=== PATIENT | male | born 1970 | race Caucasian/White ===

== ENCOUNTER 2019-01-24 12:08 | Inpatient (IN) | payer OTHER ==
--- NOTE | 2019-01-24 12:19 | Emergency Department Report ---
Blank Doc - Documentation Documentation: pt has been drinking ETOH in 3 weeks has not been eating for 6 days generalized abd pain 3 days chest pain 3 days +N/V/D no fever no urinary sx drinks 10 beers per day non smoker no drug use PMHx HTN +SI states he would take a knife to his stomach or take a gun to his head no HI no hallucinations
[2019-01-24] MEDS ORDERED: MAGNESIUM SULFATE 2GM/50ML 2 GM/50 ML BAG IV ONE (12:51)
[2019-01-24 13:02] LABS: Basophils % (Auto) 0.4 % (0.0-1.8); Hematocrit 46.5 % (35.5-45.6); Hemoglobin 16.1 gm/dl (11.8-15.2); Lymphocytes # (Auto) 1.4 K/mm3 (1.2-5.4); Lymphocytes % (Auto) 13.7 % (13.4-35.0); Mean Corpuscular HGB Conc 35 % (32-34); Mean Corpuscular Volume 87 fl (84-94); Monocytes # (Auto) 0.3 K/mm3 (0.0-0.8); Monocytes % (Auto) 2.6 % (0.0-7.3); Platelet Count 214 K/mm3 (140-440); Red Blood Count 5.35 M/mm3 (3.65-5.03); Red Cell Distribution Width 14.5 % (13.2-15.2)
--- NOTE | 2019-01-24 13:06 | Emergency Department Report ---
HPI - General Chief Complaint: Abdominal Pain Time Seen by Provider: 01/24/19 12:15 - HPI HPI: Room 9 The patient is a 48-year-old male presenting with a chief complaint of chest pain, abdominal pain and suicidal ideation. The patient states she has had constant left-sided chest pain for the past 3 days in addition to diffuse abdominal pain. Patient describes pain as sharp in nature. There is nausea/vomiting and shortness of breath associated with this chest pain. Patient began to complain of a headache while en route to the hospital. Family states the patient admitted to suicidal ideation for the past 3 days but denies any active attempt at harming himself. Family also states the patient has been on a heavy alcohol binge for the past couple of weeks Location: Chest, abdomen, head, mental state Duration: 3 days Quality: Sharp Severity: Moderate Modifying factors: [see above] Context: [see above] Mode of transportation: [not driving] ED Past Medical Hx - Past Medical History Hx Hypertension: Yes - Surgical History Hx Cholecystectomy: Yes - Family History Family history: no significant - Social History Smoking Status: Never Smoker Substance Use Type: None (denies illicit drug use), Alcohol ED Review of Systems ROS: Stated complaint: ABD/CHEST PAIN Other details as noted in HPI Constitutional: no symptoms reported Eyes: denies: eye pain ENT: denies: throat pain Respiratory: shortness of breath Cardiovascular: chest pain Endocrine: no symptoms reported Gastrointestinal: abdominal pain, nausea Genitourinary: denies: dysuria Musculoskeletal: denies: back pain Neurological: headache Physical Exam - Physical Exam Vital Signs: Vital Signs 01/24/19 12:17 Temperature 97.6 F Pulse Rate 116 H Respiratory 16 Rate Blood Pressure 142/91 [Left] O2 Sat by Pulse 97 Oximetry Physical Exam: GENERAL: The patient is well-developed well-nourished male lying on stretcher appearing to be in moderate emotional distress HEENT: Normocephalic. Atraumatic. Extraocular motions are intact. Patient has moist mucous membranes. NECK: Supple. Trachea midline CHEST/LUNGS: Clear to auscultation. There is no respiratory distress noted. HEART/CARDIOVASCULAR: Regular. There is no tachycardia. There is no gallop rub or murmur. ABDOMEN: Abdomen is soft, but diffusely tender to palpation. Patient has normal bowel sounds. There is no abdominal distention. SKIN: There is no rash. There is no edema. There is no diaphoresis. NEURO: The patient is awake, alert, and oriented. The patient is cooperative. The patient has no focal neurologic deficits. The patient has normal speech MUSCULOSKELETAL: There is no evidence of acute injury. ED Course Vital Signs 01/24/19 12:17 Temperature 97.6 F Pulse Rate 116 H Respiratory 16 Rate Blood Pressure 142/91 [Left] O2 Sat by Pulse 97 Oximetry ED Medical Decision Making - Lab Data Result diagrams: 01/24/19 12:43 01/24/19 12:43 - Radiology Data Radiology results: report reviewed (CT head, CT abdomen and pelvis, CT chest), image reviewed (CT head, CT abdomen and pelvis, CT chest) [facility] [address] [id number] Cat Scan Report Signed Patient: GILBERTO LAWRENCE MR#: [id number] : 1970 Acct:[id number] Age/Sex: 48 / M ADM Date: 01/24/19 Loc: ED Attending Dr: Ordering Physician: DELMA ESPAÑA MD Date of Service: 01/24/19 Procedure(s): CT head/brain wo con Accession Number(s): [id number] cc: DELMA ESPAÑA MD CT HEAD WITHOUT CONTRAST: HISTORY: Headache. TECHNIQUE: Sequential 2.5mm CT images. COMPARISON: none. FINDINGS: Cerebral Parenchyma: A 3.7 x 2.4 cm CSF density structure is identified in the right basal ganglia. The etiology of this is unclear. This may represent an arachnoid cyst. There is no evidence for mass effect or abnormal parenchymal signal surrounding this cystic lesion. Focal chronic infarct is thought less likely. Correlation with previous exam would be helpful. The remaining brain parenchyma is unremarkable. Cerebellum: Within normal limits. Brainstem: Within normal limits. Ventricles: Normal. Sella: Normal. Extra-axial spaces: Normal. Basal Cisterns: Normal. Intracranial Hemorrhage: None. Midline Shift: None. Calvarium: Normal. Sinuses: Normal. Mastoid Air Cells: Normal. Visualized Orbits: Normal. IMPRESSION: No acute intracranial process. Arachnoid cyst? See above. Transcribed By: TTR Dictated By: SHAWN TRIMBLE JR, MD Electronically Authenticated By: SHAWN TRIMBLE JR, MD Signed Date/Time: 01/24/191445 DD/ 43 TD/TT: 01/24/191445 [address] [address] Cat Scan Report Signed Patient: GILBERTO LAWRENCE MR#: [id number] : 1970 Acct:[id number] Age/Sex: 48 / M ADM Date: 01/24/19 Loc: ED Attending Dr: Ordering Physician: DELMA ESPAÑA MD Date of Service: 01/24/19 Procedure(s): CT angio chest Accession Number(s): [id number] cc: DELMA ESPAÑA MD CTA CHEST: HISTORY: Left chest pain. COMPARISON: none. TECHNIQUE: Helical CT in 1.25mm intervals following IV contrast. Pulmonary embolus protocol. Sagittal and coronal reformatted images. Rotational MIP images. FINDINGS: Contrast bolus is satisfactory. No pulmonary embolus is identified. Thyroid gland: Normal. Tracheobronchial tree: Normal. Esophagus: Normal. Heart: Normal. Pericardium: Normal. Mediastinum: Moderate hiatal hernia containing fat is noted. Lung Mariee: normal. Pleural Spaces: Normal. Musculoskeletal: Normal. IMPRESSION: No evidence for pulmonary embolus. No acute processes identified in the chest. Transcribed By: TTR Dictated By: SHAWN TRIMBLE JR, MD Electronically Authenticated By: SHAWN TRIMBLE JR, MD Signed Date/Time: 01/24/191448 DD/ 47 TD/TT: 01/24/[address] [address] Cat Scan Report Signed Patient: GILBERTO LAWRENCE MR#: [id number] : 1970 Acct:[id number] Age/Sex: 48 / M ADM Date: 01/24/19 Loc: ED Attending Dr: Ordering Physician: DELMA ESPAÑA MD Date of Service: 01/24/19 Procedure(s): CT abdomen pelvis w con Accession Number(s): [id number] cc: DELMA ESPAÑA MD CT ABDOMEN PELVIS WITH CONTRAST: HISTORY: Diffuse abdominal pain, nausea, vomiting. COMPARISON: none. TECHNIQUE: Helical CT in 1.25mm intervals following IV contrast. Sagittal and coronal reconstructions. FINDINGS: Liver: There is mild diffuse fatty infiltration throughout the liver. No mass or enlargement. Biliary system: Cholecystectomy. There is mild pneumobilia near the liver hilum. Pancreas: Normal. Spleen: Normal. Kidneys/ureters/bladder: Normal. Adrenal glands: Normal. Aorta: Normal. Intestines: Unremarkable. Surgical changes in the mid small bowel are noted. Appendix: Normal. Pelvic viscera: Normal. Ascites: None. Adenopathy: None. Musculoskeletal: Normal. IMPRESSION: No acute process is identified. Hepatic steatosis. Cholecystectomy. Transcribed By: TTR Dictated By: SHAWN TRIMBLE JR, MD Electronically Authenticated By: SHAWN ESTRADA JR, MD Signed Date/Time: 01/24/191451 DD/ 48 TD/TT: 01/24/191451 - Differential Diagnosis ACS, pancreatitis, GERD, suicidal ideation Critical care attestation.: If time is entered above; I have spent that time in minutes in the direct care of this critically ill patient, excluding procedure time. ED Disposition Clinical Impression: Suicidal ideation, Hyponatremia, Elevated lipase, Chest pain, Alcohol intoxication Disposition: OP ADMIT IP TO THIS HOSP Is pt being admited?: Yes Does the pt Need Aspirin: Yes Condition: Fair Instructions: Chest Pain (ED) Referrals: IGGY ALVAREZ MD [Primary Care Provider] - 3-5 Days Time of Disposition: 15:35 (hospitalist paged (Dr Sanders))
[2019-01-24 13:15] LABS: INR 0.89 (0.87-1.13)
[2019-01-24 13:16] LABS: Partial Thromboplastin Time 26.5 Sec. (24.2-36.6)
--- NOTE | 2019-01-24 13:20 | XRay Report ---
ROUTINE CHEST, TWO VIEWS: HISTORY: chest pain. There is poor inspiratory effort. The trachea, heart, mediastinal contour, lung caraballo and bony thorax are unremarkable. IMPRESSION: Unremarkable expiratory chest x-ray.
[2019-01-24 13:30] LABS: BUN/Creatinine Ratio 11; Blood Urea Nitrogen 9 mg/dL (9-20); Calcium 8.2 mg/dL (8.4-10.2)
[2019-01-24 13:31] LABS: Alanine Aminotransferase 62 units/L (7-56); Albumin 3.8 g/dL (3.9-5); Hemolysis Index 9
[2019-01-24] MEDS ORDERED: VITAMIN B-1 100 MG, FOLVITE 1 MG, INFUVITE 10 ML in NACL 0.9% 1000 ML 1,000 ML IV ONE (13:50)
[2019-01-24] MEDS ORDERED: NACL 0.9% 1000 ML 1,000 ML IV ONE (14:44)
--- NOTE | 2019-01-24 14:51 | Cat Scan Report ---
CT HEAD WITHOUT CONTRAST: HISTORY: Headache. TECHNIQUE: Sequential 2.5mm CT images. COMPARISON: none. FINDINGS: Cerebral Parenchyma: A 3.7 x 2.4 cm CSF density structure is identified in the right basal ganglia. The etiology of this is unclear. This may represent an arachnoid cyst. There is no evidence for mass effect or abnormal parenchymal signal surrounding this cystic lesion. Focal chronic infarct is thought less likely. Correlation with previous exam would be helpful. The remaining brain parenchyma is unremarkable. Cerebellum: Within normal limits. Brainstem: Within normal limits. Ventricles: Normal. Sella: Normal. Extra-axial spaces: Normal. Basal Cisterns: Normal. Intracranial Hemorrhage: None. Midline Shift: None. Calvarium: Normal. Sinuses: Normal. Mastoid Air Cells: Normal. Visualized Orbits: Normal. IMPRESSION: No acute intracranial process. Arachnoid cyst? See above.
--- NOTE | 2019-01-24 14:54 | Cat Scan Report ---
CTA CHEST: HISTORY: Left chest pain. COMPARISON: none. TECHNIQUE: Helical CT in 1.25mm intervals following IV contrast. Pulmonary embolus protocol. Sagittal and coronal reformatted images. Rotational MIP images. FINDINGS: Contrast bolus is satisfactory. No pulmonary embolus is identified. Thyroid gland: Normal. Tracheobronchial tree: Normal. Esophagus: Normal. Heart: Normal. Pericardium: Normal. Mediastinum: Moderate hiatal hernia containing fat is noted. Lung Mariee: normal. Pleural Spaces: Normal. Musculoskeletal: Normal. IMPRESSION: No evidence for pulmonary embolus. No acute processes identified in the chest.
--- NOTE | 2019-01-24 14:57 | Cat Scan Report ---
CT ABDOMEN PELVIS WITH CONTRAST: HISTORY: Diffuse abdominal pain, nausea, vomiting. COMPARISON: none. TECHNIQUE: Helical CT in 1.25mm intervals following IV contrast. Sagittal and coronal reconstructions. FINDINGS: Liver: There is mild diffuse fatty infiltration throughout the liver. No mass or enlargement. Biliary system: Cholecystectomy. There is mild pneumobilia near the liver hilum. Pancreas: Normal. Spleen: Normal. Kidneys/ureters/bladder: Normal. Adrenal glands: Normal. Aorta: Normal. Intestines: Unremarkable. Surgical changes in the mid small bowel are noted. Appendix: Normal. Pelvic viscera: Normal. Ascites: None. Adenopathy: None. Musculoskeletal: Normal. IMPRESSION: No acute process is identified. Hepatic steatosis. Cholecystectomy.
[2019-01-24] MEDS ORDERED: ASPIRIN PO ONE (15:36)
[2019-01-24] MEDS ORDERED: SODIUM CHLORIDE FLUSH SYRINGE 10 ML IV PRN (15:51)
[2019-01-24] MEDS ORDERED: TYLENOL PO PRN (15:51)
[2019-01-24 15:54] LABS: Bacteria,Urine 1+ /HPF (Negative); Bilirubin,Urine NEG (Negative); Blood,Urine SM (Negative); Color,Urine Straw (Yellow); Hyaline Casts,Urine 2 /LPF; Mucus,Urine FEW /HPF; Urobilinogen,Urine < 2.0 mg/dL (<2.0)
[2019-01-24 15:58] LABS: Amphetamine Screen,Urine PRESUMPTIVE NEGATIVE; Benzodiazepines Screen,Urine PRESUMPTIVE NEGATIVE; Cannabinoid Screen,Urine PRESUMPTIVE NEGATIVE; Cocaine Screen,Urine PRESUMPTIVE NEGATIVE; Methadone Screen,Urine PRESUMPTIVE NEGATIVE; Opiate Screen,Urine PRESUMPTIVE NEGATIVE
[2019-01-24] MEDS: SODIUM CHLORIDE FLUSH SYRINGE 10 ML IV SCH ×2 (16:10→21:32)
[2019-01-24] MEDS: DILAUDID IV PRN (16:28)
[2019-01-24] MEDS: PEPCID IV SCH ×2 (16:29→22:39)
[2019-01-24] MEDS: ZOFRAN IV PRN (16:29)
[2019-01-24] MEDS: D5NS 1,000 ML IV SCH (21:26)
[2019-01-24] MEDS: PERCOCET 5/325 PO PRN (21:27)
--- NOTE | 2019-01-24 23:53 | Event Note ---
Date: 01/24/19 See H/p in reports Hyponatremia Chestr pain ETOH Dependence
[2019-01-25] MEDS ORDERED: LIBRIUM PO PRN ×2
[2019-01-25] MEDS ORDERED: ATIVAN IV PRN
--- NOTE | 2019-01-25 00:20 | History and Physical Report ---
CHIEF COMPLAINT: 1. Abdominal pain. 2. Suicidal ideation. 3. ETOH intoxication. HISTORY OF PRESENT ILLNESS: A 48-year-old Faroese speaking male comes in for abdominal discomfort and suicidal ideation. The patient also incidentally has some chest pain. The patient has lot of reflux symptoms from the past. The patient is a heavy alcohol use, uses 12-20 beers a day. He has been having nausea and severe reflux symptoms. The patient also complains of suicidal ideation for the last 3 days. No suicidal plan present. The patient has a history of hypertension. PAST MEDICAL HISTORY: Significant for hypertension. PAST SURGICAL HISTORY: Cholecystectomy. SOCIAL HISTORY: Does not smoke. Alcohol on a regular basis about 12-20 beers a day. FAMILY HISTORY: Hypertension. REVIEW OF SYSTEMS: Significant for epigastric pain and chest pain, which is secondary to his reflux. Otherwise, review of systems is negative. PHYSICAL EXAMINATION: GENERAL: Middle-aged male, cooperative during examination. VITAL SIGNS: Temperature 98.1, pulse is 70, respirations are 12, sats are 96%, blood pressure 137/89. HEENT: Unremarkable. Pupils equal and reactive. NECK: Supple, no lymphadenopathy, no thyromegaly. LUNGS: Clear to auscultation and percussion. Good air entry. CARDIOVASCULAR: S1, S2 heard. No gallop, no murmur, no rub. Apical impulse in left fifth intercostal space and midclavicular line. ABDOMEN: Slight epigastric tenderness present. Otherwise, bowel sounds are present, benign. EXTREMITIES: Good pedal pulses. No pedal edema. CENTRAL NERVOUS SYSTEM: Alert and oriented x 4, nonfocal exam. SKIN: Normal. LABORATORY DATA: Significant for white count of 10,000, H and H is 16.1 and 46.5, platelet count is 214,000. Sodium is 124, potassium is 3.7, BUN and creatinine are 9 and 0.8, AST is 74, ALT is 62, alkaline phosphatase is 141. Albumin is 3.8, total protein is 7.8. Drug screen is negative. Alcohol level is 0.32. Electrocardiogram, sinus tachycardia, heart rate of 108 per minute, no acute ST-T wave changes. CT of the abdomen with pelvis present. No acute process identified. Hepatic steatosis and cholecystectomy, status post. Chest CTA, no evidence of pulmonary embolism. No acute process. Head CT shows no acute intracranial process. Labs are significant for white count of 10,600, H and H is 16.1 and 46.5. Sodium is 124. ASSESSMENT AND PLAN: 1. Hyponatremia. The patient started on IV normal saline for now. 2. Transaminitis, probably secondary to alcohol. Check hepatitis profile. 3. Chest pain, possible acute gastritis. We will get serial troponins. No Lexiscan was ordered. 4. ETOH dependence. CIWA protocol initiated. 5. Deep venous thrombosis prophylaxis, Lovenox 40 mg subcutaneous started. JOB# [id number] VSM/NTS MTDD
[2019-01-25] MEDS: PROTONIX IV SCH ×2 (01:50→09:44)
[2019-01-25 02:32] LABS: Basophils % (Auto) 0.2 % (0.0-1.8); Eosinophils % (Auto) 0.1 % (0.0-4.3); Hematocrit 39.1 % (35.5-45.6); Hemoglobin 13.6 gm/dl (11.8-15.2); Lymphocytes # (Auto) 1.3 K/mm3 (1.2-5.4); Lymphocytes % (Auto) 15.2 % (13.4-35.0); Mean Corpuscular HGB Conc 35 % (32-34); Mean Corpuscular Volume 87 fl (84-94); Monocytes # (Auto) 0.5 K/mm3 (0.0-0.8); Monocytes % (Auto) 5.2 % (0.0-7.3); Platelet Count 154 K/mm3 (140-440); Red Blood Count 4.49 M/mm3 (3.65-5.03); Red Cell Distribution Width 14.6 % (13.2-15.2)
[2019-01-25 02:58] LABS: Alanine Aminotransferase 46 units/L (7-56); Albumin 3.2 g/dL (3.9-5); BUN/Creatinine Ratio 9; Blood Urea Nitrogen 7 mg/dL (9-20); Calcium 7.7 mg/dL (8.4-10.2); Hemolysis Index 2
--- NOTE | 2019-01-25 03:14 | History and Physical Report ---
CHIEF COMPLAINT: Abdominal pain. HISTORY OF PRESENT ILLNESS: The patient is a 48-year-old male, comes in for epigastric pain and suicidal ideation. Also chest pain secondary to reflux. The patient is a heavy binge drinker. Drinks about 12-20 beers a day. The patient has been having epigastric pain for the last 3 days. Also, radiation to the chest. No shortness of breath. No exacerbating or precipitating factors. Epigastric and chest pain is over 5 on a scale of 1-10. PAST MEDICAL HISTORY: Significant for hypertension. PAST SURGICAL HISTORY: Cholecystectomy. FAMILY HISTORY: No significant family history. SOCIAL HISTORY: Does not smoke. Alcohol on a regular basis, 12-20 bottles of beer. REVIEW OF SYSTEMS: Significant for epigastric and chest pain. PHYSICAL EXAMINATION: GENERAL: Young male, cooperative during examination. VITAL SIGNS: Blood pressure is 124/89, temperature is 98.1, pulse is 70, and respirations 12-18. HEENT: Unremarkable. Pupils equal and reactive. NECK: Supple. No lymphadenopathy. No thyromegaly. LUNGS: Clear to auscultation and percussion. Good air entry. CARDIOVASCULAR: S1, S2 heard. No gallop. No murmur. No rub. Apical impulse in left fifth intercostal space and midclavicular line. ABDOMEN: Soft. Slight tenderness in the epigastric region. EXTREMITIES: Good pedal pulses. No pedal edema. CENTRAL NERVOUS SYSTEM: Alert and oriented x 4, nonfocal exam. SKIN: Normal. LABORATORY DATA: Urine is normal. Increased hepatic enzymes. AST 74 and ALT 62. Sodium is 124. DIAGNOSTIC DATA: EKG, normal sinus rhythm, sinus tachycardia. CT chest and CT angiogram, chest x-ray, and head CT are normal. ASSESSMENT AND PLAN: 1. Hyponatremia. IV normal saline for now. 2. Chest pain secondary to acute gastritis. Continue Protonix IV b.i.d. 3. Ethyl alcohol dependency. [facility] protocol initiated. 4. Suicidal ideation. Mental health consult requested. 5. Deep venous thrombosis prophylaxis, Lovenox 40 mg subcutaneous daily. JOB# [id number] VSM/NTS
[2019-01-25] MEDS: DILAUDID IV PRN ×2 (04:47→21:45)
[2019-01-25] MEDS: ATIVAN IV PRN (05:01)
[2019-01-25] MEDS: D5NS 1,000 ML IV SCH ×2 (05:08→15:00)
[2019-01-25 09:36] LABS: Hepatitis B Surface Antigen Non-Reactive (Negative); Hepatitis C Virus Antibody Non-Reactive (NonReactive)
[2019-01-25] MEDS: SODIUM CHLORIDE FLUSH SYRINGE 10 ML IV SCH ×2 (09:44→21:45)
[2019-01-25] MEDS: LOVENOX SUB-Q SCH (09:44)
--- NOTE | 2019-01-25 09:49 | Event Note ---
Date: 01/25/19 patient was seen and evaluated this morning, patient is medically stable for discharge. Discharge is per psych.
--- NOTE | 2019-01-25 11:19 | Progress Note ---
Assessment and Plan Assessment and plan: 48-year-old male was presented to the ED for the complaints of suicidal ideation. Patient is complaining chest pain and admitted to the floor for the management of chest pain. Patient drinks 12-20 beers a day. Suicidal ideation - Management per mental health Alcohol withdrawal - Patient patient was calm and cooperative this morning - No signs of withdrawal - Continue with CIWA protocol Chest pain likely due to GERD -Patient is on PPI -Symptoms resolved Hyponatremia - Resolved with IV fluid DVT prophylaxis Disposition; patient is medically stable and discharge is per psych recommendations. History Interval history: Patient was seen and about at this morning, Patient was alert and oriented. Hospitalist Physical - Physical exam Narrative exam: Not in cardiopulmonary distress. The patient is obese. Vital signs as documented. Head exam is unremarkable. No scleral icterus . Neck is without jugular venous distension, thyromegaly, or carotid bruits. Lungs are clear to auscultation. Cardiac exam reveals regular rate and Rhythm. Abdominal exam reveals normal bowel sounds. Extremities are nonedematous and both femoral and pedal pulses are normal. INCLUSION [employer]ER: Alert and oriented 3. No focal weakness. - Constitutional Vitals: Temp Pulse Resp BP Pulse Ox 98.6 F 104 H 24 161/92 90 01/25/19 04:58 01/25/19 04:58 01/25/19 04:58 01/25/19 04:58 01/25/19 04:58 Results - Labs CBC & Chem 7: 01/25/19 02:10 01/25/19 02:10 Labs: Laboratory Last Values WBC 8.9 K/mm3 (4.5-11.0) 01/25/19 02:10 RBC 4.49 M/mm3 (3.65-5.03) 01/25/19 02:10 Hgb 13.6 gm/dl (11.8-15.2) 01/25/19 02:10 Hct 39.1 % (35.5-45.6) D 01/25/19 02:10 MCV 87 fl (84-94) 01/25/19 02:10 MCH 30 pg (28-32) 01/25/19 02:10 MCHC 35 % (32-34) H 01/25/19 02:10 RDW 14.6 % (13.2-15.2) 01/25/19 02:10 Plt Count 154 K/mm3 (140-440) 01/25/19 02:10 Lymph % (Auto) 15.2 % (13.4-35.0) 01/25/19 02:10 Lee % (Auto) 5.2 % (0.0-7.3) 01/25/19 02:10 Eos % (Auto) 0.1 % (0.0-4.3) 01/25/19 02:10 Baso % (Auto) 0.2 % (0.0-1.8) 01/25/19 02:10 Lymph # 1.3 K/mm3 (1.2-5.4) 01/25/19 02:10 Lee # 0.5 K/mm3 (0.0-0.8) 01/25/19 02:10 Eos # 0.0 K/mm3 (0.0-0.4) 01/25/19 02:10 Baso # 0.0 K/mm3 (0.0-0.1) 01/25/19 02:10 Seg Neutrophils % 79.3 % (40.0-70.0) H 01/25/19 02:10 Seg Neutrophils # 7.0 K/mm3 (1.8-7.7) 01/25/19 02:10 PT 12.6 Sec. (12.2-14.9) 01/24/19 12:43 INR 0.89 (0.87-1.13) 01/24/19 12:43 APTT 26.5 Sec. (24.2-36.6) 01/24/19 12:43 Sodium 137 mmol/L (137-145) D 01/25/19 02:10 Potassium 3.6 mmol/L (3.6-5.0) 01/25/19 02:10 Chloride 98.2 mmol/L (98-107) 01/25/19 02:10 Carbon Dioxide 19 mmol/L (22-30) L 01/25/19 02:10 23 mmol/L 01/25/19 02:10 BUN 7 mg/dL (9-20) L 01/25/19 02:10 0.8 mg/dL (0.8-1.5) 01/25/19 02:10 Estimated GFR > 60 ml/min 01/25/19 02:10 9 % 01/25/19 02:10 Glucose 88 mg/dL (75-100) 01/25/19 02:10 5.9 % (4-6) 01/24/19 15:59 Calcium 7.7 mg/dL (8.4-10.2) L 01/25/19 02:10 Phosphorus 2.20 mg/dL (2.5-4.5) L 01/25/19 00:12 Magnesium 2.00 mg/dL (1.7-2.3) 01/25/19 00:12 0.50 mg/dL (0.1-1.2) 01/25/19 02:10 AST 51 units/L (5-40) H 01/25/19 02:10 ALT 46 units/L (7-56) 01/25/19 02:10 116 units/L (35-129) 01/25/19 02:10 35.0 umol/L (25-60) 01/25/19 00:12 < 0.010 ng/mL (0.00-0.029) 01/24/19 12:43 NT-Pro-B Natriuret Pep 14.69 pg/mL (0-450) 01/24/19 12:43 6.4 g/dL (6.3-8.2) 01/25/19 02:10 3.2 g/dL (3.9-5) L 01/25/19 02:10 1.0 % 01/25/19 02:10 Amylase 84 units/L (27-131) 01/25/19 00:12 82 units/L (13-60) H 01/24/19 12:43 Straw (Yellow) 01/24/19 15:30 Clear (Clear) 01/24/19 15:30 6.0 (5.0-7.0) 01/24/19 15:30 Ur Specific [place] 1.014 (1.003-1.030) 01/24/19 15:30 30 mg/dl mg/dL (Negative) 01/24/19 15:30 Neg mg/dL (Negative) 01/24/19 15:30 Neg mg/dL (Negative) 01/24/19 15:30 Sm (Negative) 01/24/19 15:30 Neg (Negative) 01/24/19 15:30 Neg (Negative) 01/24/19 15:30 < 2.0 mg/dL (<2.0) 01/24/19 15:30 Ur Leukocyte Esterase Neg (Negative) 01/24/19 15:30 0.0 /HPF (0.0-6.0) 01/24/19 15:30 4.0 /HPF (0.0-6.0) 01/24/19 15:30 U Epithel Cells (Auto) < 1.0 /HPF (0-13.0) 01/24/19 15:30 1+ /HPF (Negative) 01/24/19 15:30 Hyaline Casts 2 /LPF 01/24/19 15:30 Few /HPF 01/24/19 15:30 Salicylates < 0.3 mg/dL (2.8-20.0) L 01/24/19 12:43 Presumptive negative 01/24/19 15:30 Presumptive negative 01/24/19 15:30 Acetaminophen < 5.0 ug/mL (10.0-30.0) L 01/24/19 12:43 Ur Barbiturates Screen Presumptive negative 01/24/19 15:30 Ur Phencyclidine Scrn Presumptive negative 01/24/19 15:30 Ur Amphetamines Screen Presumptive negative 01/24/19 15:30 U Benzodiazepines Scrn Presumptive negative 01/24/19 15:30 Presumptive negative 01/24/19 15:30 U Marijuana (THC) Screen Presumptive negative 01/24/19 15:30 Disclamer 01/24/19 15:30 Plasma/Serum Alcohol 0.32 % (0-0.07) H 01/24/19 12:43 Hepatitis A IgM Ab Non-reactive (NonReactive) 01/25/19 07:29 Hep Bs Antigen Non-reactive (Negative) 01/25/19 07:29 Hep B Core IgM Ab Non-reactive (NonReactive) 01/25/19 07:29 Non-reactive (NonReactive) 01/25/19 07:29 Active Medications - Current Medications Current Medications: Generic Name Dose Route Start Last Admin Trade Name Freq PRN Reason Stop Dose Admin Acetaminophen 650 mg 01/24/19 15:51 Tylenol PO Q4H PRN Pain MILD(1-3)/Fever >100.5/ROLDAN Chlordiazepoxide HCl 50 mg 01/25/19 00:00 Librium PO Q1H PRN CIWA-Ar 8-15 Chlordiazepoxide HCl 100 mg 01/25/19 00:00 Librium PO Q1H PRN [facility] 16-25 Enoxaparin Sodium 40 mg 01/25/19 10:00 01/25/19 09:44 Lovenox SUB-Q 40 mg QDAY ADRIANA Administration Hydromorphone HCl 0.25 mg 01/24/19 15:51 01/25/19 04:47 Dilaudid IV 0.25 mg Q3H PRN Administration Pain, Moderate (4-6) Dextrose/Sodium Chloride 1,000 mls @ 100 mls/hr 01/24/19 17:00 01/25/19 05:08 D5ns IV 100 mls/hr DIRECT ADRIANA Administration Lorazepam 2 mg 01/25/19 00:00 01/25/19 05:01 Ativan IV 2 mg Q1H PRN [facility] Lorazepam 4 mg 01/25/19 00:00 Ativan IV Q1H PRN [facility] 16-25 Ondansetron HCl 4 mg 01/24/19 15:51 01/24/19 16:29 Zofran IV 4 mg Q8H PRN Administration Nausea And Vomiting Oxycodone/Acetaminophen 1 tab 01/24/19 15:51 01/24/19 21:27 Percocet 5/325 PO 1 tab Q6H PRN Administration Pain, Moderate (4-6) Pantoprazole Sodium 40 mg 01/25/19 01:00 01/25/19 09:44 Protonix IV 40 mg BID ADRIANA Administration Sodium Chloride 10 ml 01/24/19 16:00 01/25/19 09:44 Sodium Chloride Flush Syringe 10 Ml IV 10 ml BID ADRIANA Administration Sodium Chloride 10 ml 01/24/19 15:51 Sodium Chloride Flush Syringe 10 Ml IV PRN PRN LINE FLUSH
[2019-01-25] MEDS: PROTONIX PO SCH (13:07)
[2019-01-25] MEDS: PERCOCET 5/325 PO PRN (14:59)
--- NOTE | 2019-01-25 18:22 | Consultation ---
History of Present Illness - Reason for Consult Consult date: 01/25/19 Reason for consult: psychiatric evaluation - Chief Complaint Chief complaint: "I was intoxicated." 48 year old male seen for psychiatric evaluation on the medical floor. His chief complaint was chest pain, abdominal pain and suicidal ideation. He denies thoughts of suicide and says he was very intoxicated and does not remember what he said. He was sober for 5 years and in the last 2 weeks, he started drinking again. ETOH level 0.32 on arrival to the ER. He denies illicit substance use. He has been thinking about what he needs to do to get his life back on track. He attends AA. He states his left him, he lost his job when he asked for a raise, and his mother got sick, all within the past 2 weeks. He denies homicidal ideation. He denies psychotic symptoms. He denies a history consistent with epifanio. He complains of abdominal pain. Psychiatric history: inpatient psychiatric stay approx 15-20 years ago for detox No previous meds for depression. He describes a history of depression. longest perioid of sobriety was 10 years. Latest period of sobriety was 5 years until 2 weeks ago Medications and Allergies Allergies Allergy/AdvReac Type Severity Reaction Status Date / Time No Known Allergies Allergy Unverified 01/24/19 12:09 Active Meds: Active Medications Acetaminophen (Tylenol) 650 mg PO Q4H PRN PRN Reason: Pain MILD(1-3)/Fever >100.5/ROLDAN Chlordiazepoxide HCl (Librium) 50 mg PO Q1H PRN PRN Reason: CIWA-Ar 8-15 Chlordiazepoxide HCl (Librium) 100 mg PO Q1H PRN PRN Reason: CIWA-Ar 16-25 Enoxaparin Sodium (Lovenox) 40 mg SUB-Q QDAY ADRIANA Last Admin: 01/25/19 09:44 Dose: 40 mg Documented by: Hydromorphone HCl (Dilaudid) 0.25 mg IV Q3H PRN PRN Reason: Pain, Moderate (4-6) Last Admin: 01/25/19 04:47 Dose: 0.25 mg Documented by: Dextrose/Sodium Chloride (D5ns) 1,000 mls @ 100 mls/hr IV DIRECT ADRIANA Last Admin: 01/25/19 15:00 Dose: 100 mls/hr Documented by: Lorazepam (Ativan) 2 mg IV Q1H PRN PRN Reason: HUGO-Ar 8-15 Last Admin: 01/25/19 05:01 Dose: 2 mg Documented by: Lorazepam (Ativan) 4 mg IV Q1H PRN PRN Reason: HUGO-Eris 16-25 Ondansetron HCl (Zofran) 4 mg IV Q8H PRN PRN Reason: Nausea And Vomiting Last Admin: 01/24/19 16:29 Dose: 4 mg Documented by: Oxycodone/Acetaminophen (Percocet 5/325) 1 tab PO Q6H PRN PRN Reason: Pain, Moderate (4-6) Last Admin: 01/25/19 14:59 Dose: 1 tab Documented by: Pantoprazole Sodium (Protonix) 40 mg PO QDAY [facility] Last Admin: 01/25/19 13:07 Dose: 40 mg Documented by: Sodium Chloride (Sodium Chloride Flush Syringe 10 Ml) 10 ml IV BID [facility] Last Admin: 01/25/19 09:44 Dose: 10 ml Documented by: Sodium Chloride (Sodium Chloride Flush Syringe 10 Ml) 10 ml IV PRN PRN PRN Reason: LINE FLUSH Past psychiatric history - past Psychiatric treatment and history Psych: Addictions, Depression - Social History Social history: lives with family ( from ), alcohol abuse Mental Status Exam - Vital signs Last Vital Signs Temp 98.1 F 01/25/19 17:16 Pulse 92 H 01/25/19 17:16 Resp 18 01/25/19 17:16 BP 155/97 01/25/19 17:16 Pulse Ox 93 01/25/19 17:16 - Exam Orientation: time, place, person Affect: depressed Mood: congruent with affect Thought content: other (denies suicidal or homicidal ideation) Thought Process: Intact Perceptions: none Speech: normal rate and pattern Concentration: focused Motor activity: normal Level of consciousness: alert Memory: Intact Sleep Symptoms: None (affected by pain) Appetite: decreased (minimally ate for 6 days) Interaction: cooperative Mini mental status exam(if necessary): 24-30 Results Result Diagrams: 01/25/19 02:10 01/25/19 02:10 Abnormal lab results 01/25/19 01/25/19 01/25/19 Range/Units 00:12 02:10 02:10 MCHC 35 H (32-34) % Seg Neutrophils % 79.3 H (40.0-70.0) % Carbon Dioxide 19 L (22-30) mmol/L BUN 7 L (9-20) mg/dL Calcium 7.7 L (8.4-10.2) mg/dL Phosphorus 2.20 L (2.5-4.5) mg/dL AST 51 H (5-40) units/L Albumin 3.2 L (3.9-5) g/dL All other labs normal. Assessment and Plan Assessment and plan: Impression: alcohol use disorder major depressive disorder, recurrent He denies suicidal ideation. He is on 1013. recommendations: plan for prozac 20mg daily for depression. Potential side effects discussed and he is agreeable. CIWA per medical team continue 1013 dispo: reevaluate in 24 hours to determine if he meets [address] Victoria
[2019-01-26] MEDS: D5NS 1,000 ML IV SCH ×2 (00:55→20:59)
[2019-01-26 06:05] LABS: BUN/Creatinine Ratio 9; Blood Urea Nitrogen 7 mg/dL (9-20); Calcium 8.2 mg/dL (8.4-10.2); Hemolysis Index 9
[2019-01-26] MEDS ORDERED: REGLAN ONE (09:10)
[2019-01-26] MEDS: ZOFRAN IV PRN (09:17)
[2019-01-26] MEDS: PROTONIX PO SCH (09:18)
[2019-01-26] MEDS: LOVENOX SUB-Q SCH (09:18)
[2019-01-26] MEDS ORDERED: MAGNESIUM SULFATE 2GM/50ML 2 GM/50 ML BAG IV ONE (09:37)
[2019-01-26] MEDS ORDERED: APRESOLINE IV PRN (09:37)
[2019-01-26] MEDS ORDERED: PHENERGAN PR PRN (09:38)
[2019-01-26] MEDS ORDERED: ZOFRAN IV PRN (09:38)
[2019-01-26] MEDS ORDERED: KCL 40 MEQ in NACL 0.45% 500 ML IV SCH (09:45)
[2019-01-26] MEDS: PERCOCET 5/325 PO PRN (10:41)
[2019-01-26] MEDS: SODIUM CHLORIDE FLUSH SYRINGE 10 ML IV SCH ×2 (10:45→21:01)
--- NOTE | 2019-01-26 12:31 | Progress Note ---
Assessment and Plan Assessment and plan: 48-year-old male was presented to the ED for the complaints of suicidal ideation. Patient is complaining chest pain and admitted to the floor for the management of chest pain. Patient drinks 12-20 beers a day. Suicidal ideation - Management per mental health, cont 1013 Alcohol intoxication and withdrawal - Patient patient was calm and cooperative this morning - No signs of withdrawal - Continue with CIWA protocol Chest pain likely due to GERD? tachycardia cont PPI obtain 12 lead EKG, obtain troponin and cardiology consult Hyponatremia - Resolved with IV fluid N/V zofran prn, ivf, ct/ap shows fatty liver, will obtain RUQ sono, if symptoms do not resolve by tomorrow, will consult GI DVT prophylaxis; lovenox History Interval history: Review of systems Constitutional: No fevers, no malaise, no joint pains CVS: No chest pain, no orthopnea, no pedal edema GI: Abdominal pain is improved, no diarrhea, no vomiting, no constipation Respiratory: No shortness of breath, no wheezing, no coughing Hospitalist Physical - Physical exam Narrative exam: General.: Appears well, no distress, nontoxic HEENT: Moist mucous membranes, extraocular muscles intact, no lymphadenopathy Neck: supple Cardiac: S1-S2 heard Lungs: clear to auscultation bilaterally Abdomen: soft , nontender, nondistended, bowel sounds positive Extremities: no edema clubbing or cyanosis Skin: no rash or lesions Neurologic: no gross focal deficits Psych: calm, and cooperative - Constitutional Vitals: Temp Pulse Resp BP Pulse Ox 98.4 F 106 H 24 133/90 94 01/26/19 11:14 01/26/19 11:14 01/26/19 11:14 01/26/19 11:14 01/26/19 11:14 Results - Labs CBC & Chem 7: 01/25/19 02:10 01/28/19 06:44 Labs: Laboratory Last Values WBC 8.9 K/mm3 (4.5-11.0) 01/25/19 02:10 RBC 4.49 M/mm3 (3.65-5.03) 01/25/19 02:10 Hgb 13.6 gm/dl (11.8-15.2) 01/25/19 02:10 Hct 39.1 % (35.5-45.6) D 01/25/19 02:10 MCV 87 fl (84-94) 01/25/19 02:10 MCH 30 pg (28-32) 01/25/19 02:10 MCHC 35 % (32-34) H 01/25/19 02:10 RDW 14.6 % (13.2-15.2) 01/25/19 02:10 Plt Count 154 K/mm3 (140-440) 01/25/19 02:10 Lymph % (Auto) 15.2 % (13.4-35.0) 01/25/19 02:10 [place] % (Auto) 5.2 % (0.0-7.3) 01/25/19 02:10 Eos % (Auto) 0.1 % (0.0-4.3) 01/25/19 02:10 Baso % (Auto) 0.2 % (0.0-1.8) 01/25/19 02:10 Lymph # 1.3 K/mm3 (1.2-5.4) 01/25/19 02:10 [place] # 0.5 K/mm3 (0.0-0.8) 01/25/19 02:10 Eos # 0.0 K/mm3 (0.0-0.4) 01/25/19 02:10 Baso # 0.0 K/mm3 (0.0-0.1) 01/25/19 02:10 Seg Neutrophils % 79.3 % (40.0-70.0) H 01/25/19 02:10 Seg Neutrophils # 7.0 K/mm3 (1.8-7.7) 01/25/19 02:10 PT 12.6 Sec. (12.2-14.9) 01/24/19 12:43 INR 0.89 (0.87-1.13) 01/24/19 12:43 APTT 26.5 Sec. (24.2-36.6) 01/24/19 12:43 Sodium 141 mmol/L (137-145) 01/26/19 05:11 Potassium 3.0 mmol/L (3.6-5.0) L 01/26/19 05:11 Chloride 102.5 mmol/L (98-107) 01/26/19 05:11 Carbon Dioxide 28 mmol/L (22-30) D 01/26/19 05:11 14 mmol/L 01/26/19 05:11 BUN 7 mg/dL (9-20) L 01/26/19 05:11 0.8 mg/dL (0.8-1.5) 01/26/19 05:11 Estimated GFR > 60 ml/min 01/26/19 05:11 9 % 01/26/19 05:11 Glucose 134 mg/dL (75-100) H 01/26/19 05:11 5.9 % (4-6) 01/24/19 15:59 Calcium 8.2 mg/dL (8.4-10.2) L 01/26/19 05:11 Phosphorus 2.20 mg/dL (2.5-4.5) L 01/25/19 00:12 Magnesium 2.00 mg/dL (1.7-2.3) 01/25/19 00:12 0.50 mg/dL (0.1-1.2) 01/25/19 02:10 AST 51 units/L (5-40) H 01/25/19 02:10 ALT 46 units/L (7-56) 01/25/19 02:10 116 units/L (35-129) 01/25/19 02:10 35.0 umol/L (25-60) 01/25/19 00:12 < 0.010 ng/mL (0.00-0.029) 01/24/19 12:43 NT-Pro-B Natriuret Pep 14.69 pg/mL (0-450) 01/24/19 12:43 6.4 g/dL (6.3-8.2) 01/25/19 02:10 3.2 g/dL (3.9-5) L 01/25/19 02:10 1.0 % 01/25/19 02:10 Amylase 84 units/L (27-131) 01/25/19 00:12 82 units/L (13-60) H 01/24/19 12:43 Straw (Yellow) 01/24/19 15:30 Clear (Clear) 01/24/19 15:30 6.0 (5.0-7.0) 01/24/19 15:30 Ur Specific Martin 1.014 (1.003-1.030) 01/24/19 15:30 30 mg/dl mg/dL (Negative) 01/24/19 15:30 Neg mg/dL (Negative) 01/24/19 15:30 Neg mg/dL (Negative) 01/24/19 15:30 Sm (Negative) 01/24/19 15:30 Neg (Negative) 01/24/19 15:30 Neg (Negative) 01/24/19 15:30 < 2.0 mg/dL (<2.0) 01/24/19 15:30 Ur Leukocyte Esterase Neg (Negative) 01/24/19 15:30 0.0 /HPF (0.0-6.0) 01/24/19 15:30 4.0 /HPF (0.0-6.0) 01/24/19 15:30 U Epithel Cells (Auto) < 1.0 /HPF (0-13.0) 01/24/19 15:30 1+ /HPF (Negative) 01/24/19 15:30 Hyaline Casts 2 /LPF 01/24/19 15:30 Few /HPF 01/24/19 15:30 Salicylates < 0.3 mg/dL (2.8-20.0) L 01/24/19 12:43 Presumptive negative 01/24/19 15:30 Presumptive negative 01/24/19 15:30 Acetaminophen < 5.0 ug/mL (10.0-30.0) L 01/24/19 12:43 Ur Barbiturates Screen Presumptive negative 01/24/19 15:30 Ur Phencyclidine Scrn Presumptive negative 01/24/19 15:30 Ur Amphetamines Screen Presumptive negative 01/24/19 15:30 U Benzodiazepines Scrn Presumptive negative 01/24/19 15:30 Presumptive negative 01/24/19 15:30 U Marijuana (THC) Screen Presumptive negative 01/24/19 15:30 Disclamer 01/24/19 15:30 Plasma/Serum Alcohol 0.32 % (0-0.07) H 01/24/19 12:43 Hepatitis A IgM Ab Non-reactive (NonReactive) 01/25/19 07:29 Hep Bs Antigen Non-reactive (Negative) 01/25/19 07:29 Hep B Core IgM Ab Non-reactive (NonReactive) 01/25/19 07:29 Non-reactive (NonReactive) 01/25/19 07:29 Active Medications - Current Medications Current Medications: Generic Name Dose Route Start Last Admin Trade Name Freq PRN Reason Stop Dose Admin Acetaminophen 650 mg 01/24/19 15:51 Tylenol PO Q4H PRN Pain MILD(1-3)/Fever >100.5/ROLDAN Chlordiazepoxide HCl 50 mg 01/25/19 00:00 Librium PO Q1H PRN [facility] 8-15 Chlordiazepoxide HCl 100 mg 01/25/19 00:00 Librium PO Q1H PRN [facility] 16-25 Enoxaparin Sodium 40 mg 01/25/19 10:00 01/26/19 09:18 Lovenox SUB-Q 40 mg QDAY ADRIANA Administration Hydralazine HCl 10 mg 01/26/19 09:37 01/26/19 10:41 Apresoline IV 10 mg Q4HR PRN Administration BP >160/100 Hydromorphone HCl 0.25 mg 01/24/19 15:51 01/25/19 21:45 Dilaudid IV 0.25 mg Q3H PRN Administration Pain, Moderate (4-6) Dextrose/Sodium Chloride 1,000 mls @ 100 mls/hr 01/24/19 17:00 01/26/19 00:55 D5ns IV 100 mls/hr DIRECT ADRIANA Administration Potassium Chloride 40 meq/ 520 mls @ 125 mls/hr 01/26/19 09:45 Sodium Chloride IV 01/26/19 13:55 DIRECT ADRIANA Lorazepam 2 mg 01/25/19 00:00 01/25/19 05:01 Ativan IV 2 mg Q1H PRN Administration [facility] 8-15 Lorazepam 4 mg 01/25/19 00:00 Ativan IV Q1H PRN [facility] 16-25 Ondansetron HCl 4 mg 01/26/19 09:38 Zofran IV Q4H PRN Nausea And Vomiting Oxycodone/Acetaminophen 1 tab 01/24/19 15:51 01/26/19 10:41 Percocet 5/325 PO 1 tab Q6H PRN Administration Pain, Moderate (4-6) Pantoprazole Sodium 40 mg 01/25/19 12:00 01/26/19 09:18 Protonix PO 40 mg QDAY ADRIANA Administration Promethazine HCl 25 mg 01/26/19 09:38 Phenergan [place] Q6H PRN Nausea And Vomiting Sodium Chloride 10 ml 01/24/19 16:00 01/26/19 10:45 Sodium Chloride Flush Syringe 10 Ml IV 10 ml BID ADRIANA Administration Sodium Chloride 10 ml 01/24/19 15:51 Sodium Chloride Flush Syringe 10 Ml IV PRN PRN LINE FLUSH
--- NOTE | 2019-01-26 18:05 | Progress Note ---
Subjective - Reason for Consult Consult date: 01/26/19 Reason for consult: follow up - Chief Complaint Chief complaint: "I don't feel well." 48 year old male seen for psychiatric evaluation on the medical floor. His chief complaint was chest pain, abdominal pain and suicidal ideation. He denies thoughts of suicide and says he was very intoxicated and does not remember what he said. He was sober for 5 years and in the last 2 weeks, he started drinking again. ETOH level 0.32 on arrival to the ER. He denies illicit substance use. He says he is depressed but denies suicidal or homicidal ideation. He is upset by the staff not paying attention to his needs. He complains of abdominal pain and is distressed by it. Mental Status Exam - Vital signs Last Vital Signs Temp 98.4 F 01/26/19 11:14 Pulse 106 H 01/26/19 11:14 Resp 24 01/26/19 11:14 BP 133/90 01/26/19 11:14 Pulse Ox 94 01/26/19 11:14 - Exam Narrative exam: Orientation: time, place, person Affect: depressed Mood: congruent with affect Thought content: other (denies suicidal or homicidal ideation) Thought Process: Intact Perceptions: none Speech: normal rate and pattern Concentration: focused Motor activity: normal Level of consciousness: alert Memory: Intact Sleep Symptoms: None (affected by pain) Appetite: decreased (minimally ate for 6 days) Interaction: cooperative Mini mental status exam(if necessary): 24-30 Assessment and Plan Impression: alcohol use disorder, r/o withdrawal major depressive disorder, recurrent He denies suicidal ideation. He is on 1013. recommendations: plan for prozac 20mg daily for depression. Potential side effects discussed and he is agreeable. start trazodone 50mg prn sleep. risks/benefits discussed. he is agreeable CIWA per medical team He is not medically cleared continue 1013 A message was left with his nurse to evaluate for criteria to provide detox med. dispo: reevaluate in 24 hours to determine if he meets [address] Victoria
--- NOTE | 2019-01-26 19:06 | Ultrasound Report ---
PROCEDURE: US ABDOMEN LIMITED HISTORY: abdominal pain FINDINGS: Real-time ultrasound of the right upper quadrant was performed. The patient is status post cholecystectomy. The common duct measures 0.6 cm which is within normal li mits. The aorta proximally measures 1.4 cm which is normal. The right kidney measures 11.6 x 5.2 x 4.7 cm. There is no evidence of hydronephrosis. The liver is echogenic consistent with fatty infiltration. IMPRESSION: Fatty infiltration of the liver Cholecystectomy This document is electronically signed by Brent Forman MD., Jan 26 2019 07:04:09 PM ET
[2019-01-26] MEDS: ATIVAN IV PRN (19:25)
[2019-01-26] MEDS: DESYREL PO PRN (21:01)
[2019-01-27] MEDS: D5NS 1,000 ML IV SCH (06:28)
[2019-01-27] MEDS: LOVENOX SUB-Q SCH (09:10)
[2019-01-27] MEDS: PROTONIX PO SCH (09:11)
[2019-01-27] MEDS: SODIUM CHLORIDE FLUSH SYRINGE 10 ML IV SCH ×2 (09:11→21:36)
--- NOTE | 2019-01-27 09:29 | Progress Note ---
Subjective - Reason for Consult Consult date: 01/27/19 Reason for consult: Psychiatry Follow-up - Chief Complaint Chief complaint: "I'm okay" 48 year old male seen for psychiatric evaluation on the medical floor. His chief complaint was chest pain, abdominal pain and suicidal ideation. Today the patient is cooperative, but somewhat guarded during the assessment. He stated that he have a lot going on in his life, but is adamant that he isn't s uicidal. He was asked several questions about his stressors, but was vague with is answers. He denies SI/HI's and AVH's. Mental Status Exam - Vital signs Last Vital Signs Temp 98.0 F 01/27/19 05:15 Pulse 83 01/27/19 05:15 Resp 16 01/27/19 05:15 BP 141/88 01/27/19 05:15 Pulse Ox 91 01/27/19 05:15 - Exam Narrative exam: MSE: Appearance: calm Behavior: regular eye contact Speech: regular rate and tone Mood: guarded Affect: congruent to mood Thought Process: circumstantial Thought Content: denies SI/HI's and AVH's Motor Activity: sitting up in bed Cognition: A/O x 3 Insight: variable to fair Judgment: variable to fair Assessment and Plan Impression: MDD. Alcohol use DO. Today the patient was cooperative during the assessment. Liver enzymes trending down. DDx: R/O Bipolar DO, Alcohol Induced Mood DO Recommendation/Plan: Continue 1013 and start Prozac 20 mg PO daily for depression. Discussed possible suicidality/medication induced marychuy reference antidepressants. Discussed possible priapism with the patient reference Trazodone. The patient verbalized undersatnding reference his medications. Dispo: Once the patient is medically clear, proper dispo will be determined. Will staff with Dr Adele Victoria,
[2019-01-27 09:36] LABS: BUN/Creatinine Ratio 8; Blood Urea Nitrogen 7 mg/dL (9-20); Calcium 7.7 mg/dL (8.4-10.2); Hemolysis Index 22
[2019-01-27] MEDS: PROzac PO SCH (10:03)
--- NOTE | 2019-01-27 11:22 | Consultation ---
History of Present Illness Consult date: 01/27/19 Requesting physician: DIANA SANDERS Consult reason: chest pain History of present illness: 48-year-old male with history of alcohol abuse was admitted for suicidal ideation as per the hospitalist yesterday complaint chest discomfort troponins negative EKG is normal sinus rhythm with no ST-T abnormalities. Today patient denies any chest pain more abdominal pain denies any nausea vomiting or history of heart issues denies any exertional shortness of breath or chest pain in the past Past History Past Medical History: No medical history Past Surgical History: No surgical history Social history: lives with family ( from ), alcohol abuse Medications and Allergies Allergies Allergy/AdvReac Type Severity Reaction Status Date / Time No Known Allergies Allergy Unverified 01/24/19 12:09 Active Meds: Active Medications Acetaminophen (Tylenol) 650 mg PO Q4H PRN PRN Reason: Pain MILD(1-3)/Fever >100.5/ROLDAN Chlordiazepoxide HCl (Librium) 50 mg PO Q1H PRN PRN Reason: HUGO-Eris 8-15 Chlordiazepoxide HCl (Librium) 100 mg PO Q1H PRN PRN Reason: HUGO-Eris 16-25 Enoxaparin Sodium (Lovenox) 40 mg SUB-Q QDAY [facility] Last Admin: 01/27/19 09:10 Dose: 40 mg Documented by: Fluoxetine HCl (Prozac) 20 mg PO QDAY [facility] Last Admin: 01/27/19 10:03 Dose: 20 mg Documented by: Hydralazine HCl (Apresoline) 10 mg IV Q4HR PRN PRN Reason: BP >160/100 Last Admin: 01/26/19 10:41 Dose: 10 mg Documented by: Hydromorphone HCl (Dilaudid) 0.25 mg IV Q3H PRN PRN Reason: Pain, Moderate (4-6) Last Admin: 01/25/19 21:45 Dose: 0.25 mg Documented by: Dextrose/Sodium Chloride (D5ns) 1,000 mls @ 100 mls/hr IV DIRECT ADRIANA Last Admin: 01/27/19 06:28 Dose: 100 mls/hr Documented by: Lorazepam (Ativan) 2 mg IV Q1H PRN PRN Reason: HUGO-Eris 8-15 Last Admin: 01/26/19 19:25 Dose: 2 mg Documented by: Lorazepam (Ativan) 4 mg IV Q1H PRN PRN Reason: CIWA-Ar 16- Ondansetron HCl (Zofran) 4 mg IV Q4H PRN PRN Reason: Nausea And Vomiting Oxycodone/Acetaminophen (Percocet 5/325) 1 tab PO Q6H PRN PRN Reason: Pain, Moderate (4-6) Last Admin: 01/26/19 10:41 Dose: 1 tab Documented by: Pantoprazole Sodium (Protonix) 40 mg PO QDAY [facility] Last Admin: 01/27/19 09:11 Dose: 40 mg Documented by: Promethazine HCl (Phenergan) 25 mg [place] Q6H PRN PRN Reason: Nausea And Vomiting Sodium Chloride (Sodium Chloride Flush Syringe 10 Ml) 10 ml IV BID [facility] Last Admin: 01/27/19 09:11 Dose: 10 ml Documented by: Sodium Chloride (Sodium Chloride Flush Syringe 10 Ml) 10 ml IV PRN PRN PRN Reason: LINE FLUSH Last Admin: 01/26/19 19:26 Dose: 10 ml Documented by: Trazodone HCl (Desyrel) 50 mg PO QHS PRN PRN Reason: Sleep Last Admin: 01/26/19 21:01 Dose: 50 mg Documented by: Review of Systems All systems: negative (as per hpi) Physical Examination Vital Signs Temp Pulse Resp BP Pulse Ox 97.6 F 116 H 16 142/91 97 01/24/19 12:17 01/24/19 12:17 01/24/19 12:17 01/24/19 12:17 01/24/19 12:17 General appearance: no acute distress, well-nourished HEENT: Positive: PERRL, Mucus Membranes Moist Neck: Positive: neck supple, trachea midline Cardiac: Positive: Reg Rate and Rhythm, S1/S2. Negative: Audible Murmur Lungs: Positive: clear to auscultation, Normal Breath Sounds Neuro: Positive: Grossly Intact Abdomen: Positive: Soft, Active Bowel Sounds. Negative: Tender, Distended Male genitourinary: Positive: normal Skin: Positive: Clear Incision: Cardiac Cath Site Musculoskeletal: No Pain, Normal Range of Motion Extremities: Present: normal. Absent: edema Results 01/25/19 02:10 01/27/19 07:57 Comprehensive Metabolic Panel 01/27/19 Range/Units 07:57 Sodium 140 (137-145) mmol/L Potassium 3.2 L (3.6-5.0) mmol/L Chloride 101.5 (98-107) mmol/L Carbon Dioxide 28 (22-30) mmol/L BUN 7 L (9-20) mg/dL Creatinine 0.9 (0.8-1.5) mg/dL Glucose 124 H (75-100) mg/dL Calcium 7.7 L (8.4-10.2) mg/dL EKG interpretations - Telemetry EKG Rhythm: Sinus Tachycardia (no st-t) Assessment and Plan chest pain atypical proable gi etoh abuse sucidal ideation hypokalemia rec: cont ppi and replace k, no chest pain and atypical pain, check echo, if reoccurs consider stress test.
[2019-01-27] MEDS ORDERED: KPHOS 45 MMOL in NACL 0.9% 500 ML 500 ML IV ONE (13:54)
--- NOTE | 2019-01-27 13:59 | Progress Note ---
Assessment and Plan Assessment and plan: 48-year-old male was presented to the ED for the complaints of suicidal ideation. Patient is complaining chest pain and admitted to the floor for the management of chest pain. Patient drinks 12-20 beers a day. Suicidal ideation - Management per mental health, cont 1013 Alcohol intoxication and withdrawal - Patient patient was calm and cooperative this morning - No signs of withdrawal - Continue with CIWA protocol Chest pain likely due to GERD? tachycardia cont PPI ekg shows sinus tach, cardiology input appreciated, echo pending Hyponatremia - Resolved with IV fluid N/V- abdominal pain zofran prn, , ct/ap shows fatty liver, RUQ sono neg, GI consult N/v resolving, now tolerating PO Hypokalemia, hypophosphatemia replaced DVT prophylaxis; lovenox History Interval history: Review of systems Constitutional: No fevers, no malaise, no joint pains CVS: No chest pain, no orthopnea, no pedal edema GI: Abdominal pain is improved, no diarrhea, no vomiting, no constipation Respiratory: No shortness of breath, no wheezing, no coughing Hospitalist Physical - Physical exam Narrative exam: General.: Appears well, no distress, nontoxic HEENT: Moist mucous membranes, extraocular muscles intact, no lymphadenopathy Neck: supple Cardiac: S1-S2 heard Lungs: clear to auscultation bilaterally Abdomen: soft , nontender, nondistended, bowel sounds positive Extremities: no edema clubbing or cyanosis Skin: no rash or lesions Neurologic: no gross focal deficits Psych: calm, and cooperative - Constitutional Vitals: Temp Pulse Resp BP Pulse Ox 98.6 F 85 18 141/88 94 01/27/19 11:39 01/27/19 11:39 01/27/19 11:39 01/27/19 05:15 01/27/19 11:39 General appearance: Present: no acute distress, well-nourished Results - Labs CBC & Chem 7: 01/25/19 02:10 01/28/19 06:44 Labs: Laboratory Last Values WBC 8.9 K/mm3 (4.5-11.0) 01/25/19 02:10 RBC 4.49 M/mm3 (3.65-5.03) 01/25/19 02:10 Hgb 13.6 gm/dl (11.8-15.2) 01/25/19 02:10 Hct 39.1 % (35.5-45.6) D 01/25/19 02:10 MCV 87 fl (84-94) 01/25/19 02:10 MCH 30 pg (28-32) 01/25/19 02:10 MCHC 35 % (32-34) H 01/25/19 02:10 RDW 14.6 % (13.2-15.2) 01/25/19 02:10 Plt Count 154 K/mm3 (140-440) 01/25/19 02:10 Lymph % (Auto) 15.2 % (13.4-35.0) 01/25/19 02:10 [place] % (Auto) 5.2 % (0.0-7.3) 01/25/19 02:10 Eos % (Auto) 0.1 % (0.0-4.3) 01/25/19 02:10 Baso % (Auto) 0.2 % (0.0-1.8) 01/25/19 02:10 Lymph # 1.3 K/mm3 (1.2-5.4) 01/25/19 02:10 [place] # 0.5 K/mm3 (0.0-0.8) 01/25/19 02:10 Eos # 0.0 K/mm3 (0.0-0.4) 01/25/19 02:10 Baso # 0.0 K/mm3 (0.0-0.1) 01/25/19 02:10 Seg Neutrophils % 79.3 % (40.0-70.0) H 01/25/19 02:10 Seg Neutrophils # 7.0 K/mm3 (1.8-7.7) 01/25/19 02:10 PT 12.6 Sec. (12.2-14.9) 01/24/19 12:43 INR 0.89 (0.87-1.13) 01/24/19 12:43 APTT 26.5 Sec. (24.2-36.6) 01/24/19 12:43 Sodium 140 mmol/L (137-145) 01/27/19 07:57 Potassium 3.2 mmol/L (3.6-5.0) L 01/27/19 07:57 Chloride 101.5 mmol/L (98-107) 01/27/19 07:57 Carbon Dioxide 28 mmol/L (22-30) 01/27/19 07:57 14 mmol/L 01/27/19 07:57 BUN 7 mg/dL (9-20) L 01/27/19 07:57 0.9 mg/dL (0.8-1.5) 01/27/19 07:57 Estimated GFR > 60 ml/min 01/27/19 07:57 8 % 01/27/19 07:57 Glucose 124 mg/dL (75-100) H 01/27/19 07:57 5.9 % (4-6) 01/24/19 15:59 Calcium 7.7 mg/dL (8.4-10.2) L 01/27/19 07:57 Phosphorus 2.20 mg/dL (2.5-4.5) L 01/27/19 07:57 Magnesium 2.20 mg/dL (1.7-2.3) 01/27/19 07:57 0.50 mg/dL (0.1-1.2) 01/25/19 02:10 AST 51 units/L (5-40) H 01/25/19 02:10 ALT 46 units/L (7-56) 01/25/19 02:10 116 units/L (35-129) 01/25/19 02:10 35.0 umol/L (25-60) 01/25/19 00:12 < 0.010 ng/mL (0.00-0.029) 01/26/19 13:49 NT-Pro-B Natriuret Pep 14.69 pg/mL (0-450) 01/24/19 12:43 6.4 g/dL (6.3-8.2) 01/25/19 02:10 3.2 g/dL (3.9-5) L 01/25/19 02:10 1.0 % 01/25/19 02:10 Amylase 84 units/L (27-131) 01/25/19 00:12 82 units/L (13-60) H 01/24/19 12:43 Straw (Yellow) 01/24/19 15:30 Clear (Clear) 01/24/19 15:30 6.0 (5.0-7.0) 01/24/19 15:30 Ur Specific [place] 1.014 (1.003-1.030) 01/24/19 15:30 30 mg/dl mg/dL (Negative) 01/24/19 15:30 Neg mg/dL (Negative) 01/24/19 15:30 Neg mg/dL (Negative) 01/24/19 15:30 Sm (Negative) 01/24/19 15:30 Neg (Negative) 01/24/19 15:30 Neg (Negative) 01/24/19 15:30 < 2.0 mg/dL (<2.0) 01/24/19 15:30 Ur Leukocyte Esterase Neg (Negative) 01/24/19 15:30 0.0 /HPF (0.0-6.0) 01/24/19 15:30 4.0 /HPF (0.0-6.0) 01/24/19 15:30 U Epithel Cells (Auto) < 1.0 /HPF (0-13.0) 01/24/19 15:30 1+ /HPF (Negative) 01/24/19 15:30 Hyaline Casts 2 /LPF 01/24/19 15:30 Few /HPF 01/24/19 15:30 Salicylates < 0.3 mg/dL (2.8-20.0) L 01/24/19 12:43 Presumptive negative 01/24/19 15:30 Presumptive negative 01/24/19 15:30 Acetaminophen < 5.0 ug/mL (10.0-30.0) L 01/24/19 12:43 Ur Barbiturates Screen Presumptive negative 01/24/19 15:30 Ur Phencyclidine Scrn Presumptive negative 01/24/19 15:30 Ur Amphetamines Screen Presumptive negative 01/24/19 15:30 U Benzodiazepines Scrn Presumptive negative 01/24/19 15:30 Presumptive negative 01/24/19 15:30 U Marijuana (THC) Screen Presumptive negative 01/24/19 15:30 Disclamer 01/24/19 15:30 Plasma/Serum Alcohol 0.32 % (0-0.07) H 01/24/19 12:43 Hepatitis A IgM Ab Non-reactive (NonReactive) 01/25/19 07:29 Hep Bs Antigen Non-reactive (Negative) 01/25/19 07:29 Hep B Core IgM Ab Non-reactive (NonReactive) 01/25/19 07:29 Non-reactive (NonReactive) 01/25/19 07:29 Active Medications - Current Medications Current Medications: Generic Name Dose Route Start Last Admin Trade Name Freq PRN Reason Stop Dose Admin Acetaminophen 650 mg 01/24/19 15:51 Tylenol PO Q4H PRN Pain MILD(1-3)/Fever >100.5/ROLDAN Chlordiazepoxide HCl 50 mg 01/25/19 00:00 Librium PO Q1H PRN CIWA-Ar 8-15 Chlordiazepoxide HCl 100 mg 01/25/19 00:00 Librium PO Q1H PRN CIOH-Ar 16-25 Enoxaparin Sodium 40 mg 01/25/19 10:00 01/27/19 09:10 Lovenox SUB-Q 40 mg QDAY ADRIANA Administration Fluoxetine HCl 20 mg 01/27/19 10:00 01/27/19 10:03 Prozac PO 20 mg QDAY ADRIANA Administration Hydralazine HCl 10 mg 01/26/19 09:37 01/26/19 10:41 Apresoline IV 10 mg Q4HR PRN Administration BP >160/100 Hydromorphone HCl 0.25 mg 01/24/19 15:51 01/25/19 21:45 Dilaudid IV 0.25 mg Q3H PRN Administration Pain, Moderate (4-6) Potassium Phosphate 45 mmol/ 515 mls @ 85 mls/hr 01/27/19 13:54 Sodium Chloride IV 01/27/19 19:57 ONCE ONE Lorazepam 2 mg 01/25/19 00:00 01/26/19 19:25 Ativan IV 2 mg Q1H PRN Administration [facility]-Ar 8-15 Lorazepam 4 mg 01/25/19 00:00 Ativan IV Q1H PRN [facility]-Ar 16-25 Ondansetron HCl 4 mg 01/26/19 09:38 Zofran IV Q4H PRN Nausea And Vomiting Oxycodone/Acetaminophen 1 tab 01/24/19 15:51 01/26/19 10:41 Percocet 5/325 PO 1 tab Q6H PRN Administration Pain, Moderate (4-6) Pantoprazole Sodium 40 mg 01/25/19 12:00 01/27/19 09:11 Protonix PO 40 mg QDAY ADRIANA Administration Promethazine HCl 25 mg 01/26/19 09:[address] Q6H PRN Nausea And Vomiting Sodium Chloride 10 ml 01/24/19 16:00 01/27/19 09:11 Sodium Chloride Flush Syringe 10 Ml IV 10 ml BID ADRIANA Administration Sodium Chloride 10 ml 01/24/19 15:51 01/26/19 19:26 Sodium Chloride Flush Syringe 10 Ml IV 10 ml PRN PRN Administration LINE FLUSH Trazodone HCl 50 mg 01/26/19 18:05 01/26/19 21:01 Desyrel PO 50 mg QHS PRN Administration Sleep
[2019-01-27] MEDS: DESYREL PO PRN (21:36)
[2019-01-28 07:02] VITALS: BP 136/91
--- NOTE | 2019-01-28 08:14 | Progress Note ---
Assessment and Plan Assessment and plan: 48-year-old male was presented to the ED for the complaints of suicidal ideation. Patient is complaining chest pain and admitted to the floor for the management of chest pain. Patient drinks 12-20 beers a day. Suicidal ideation - Management per mental health, cont 1013 Alcohol intoxication and withdrawal - Patient patient was calm and cooperative this morning - No signs of withdrawal - Continue with CIWA protocol Chest pain likely due to GERD? tachycardia cont PPI ekg shows sinus tach, cardiology input appreciated, echo pending Hyponatremia - Resolved with IV fluid N/V- abdominal pain zofran prn, , ct/ap shows fatty liver, RUQ sono neg, GI consult N/v resolving, now tolerating PO Hypokalemia, hypophosphatemia replaced DVT prophylaxis; caleb Hospitalist Physical - Constitutional Vitals: Temp Pulse Resp BP Pulse Ox 98.2 F 76 20 136/91 95 01/28/19 07:00 01/28/19 07:00 01/28/19 07:00 01/28/19 07:00 01/28/19 07:00 General appearance: Present: no acute distress, well-nourished Results - Labs CBC & Chem 7: 01/25/19 02:10 01/28/19 06:44 Labs: Laboratory Last Values WBC 8.9 K/mm3 (4.5-11.0) 01/25/19 02:10 RBC 4.49 M/mm3 (3.65-5.03) 01/25/19 02:10 Hgb 13.6 gm/dl (11.8-15.2) 01/25/19 02:10 Hct 39.1 % (35.5-45.6) D 01/25/19 02:10 MCV 87 fl (84-94) 01/25/19 02:10 MCH 30 pg (28-32) 01/25/19 02:10 MCHC 35 % (32-34) H 01/25/19 02:10 RDW 14.6 % (13.2-15.2) 01/25/19 02:10 Plt Count 154 K/mm3 (140-440) 01/25/19 02:10 Lymph % (Auto) 15.2 % (13.4-35.0) 01/25/19 02:10 [place] % (Auto) 5.2 % (0.0-7.3) 01/25/19 02:10 Eos % (Auto) 0.1 % (0.0-4.3) 01/25/19 02:10 Baso % (Auto) 0.2 % (0.0-1.8) 01/25/19 02:10 Lymph # 1.3 K/mm3 (1.2-5.4) 01/25/19 02:10 [place] # 0.5 K/mm3 (0.0-0.8) 01/25/19 02:10 Eos # 0.0 K/mm3 (0.0-0.4) 01/25/19 02:10 Baso # 0.0 K/mm3 (0.0-0.1) 01/25/19 02:10 Seg Neutrophils % 79.3 % (40.0-70.0) H 01/25/19 02:10 Seg Neutrophils # 7.0 K/mm3 (1.8-7.7) 01/25/19 02:10 PT 12.6 Sec. (12.2-14.9) 01/24/19 12:43 INR 0.89 (0.87-1.13) 01/24/19 12:43 APTT 26.5 Sec. (24.2-36.6) 01/24/19 12:43 Sodium 140 mmol/L (137-145) 01/27/19 07:57 Potassium 3.1 mmol/L (3.6-5.0) L 01/28/19 06:44 Chloride 101.5 mmol/L (98-107) 01/27/19 07:57 Carbon Dioxide 28 mmol/L (22-30) 01/27/19 07:57 14 mmol/L 01/27/19 07:57 BUN 7 mg/dL (9-20) L 01/27/19 07:57 0.9 mg/dL (0.8-1.5) 01/27/19 07:57 Estimated GFR > 60 ml/min 01/27/19 07:57 8 % 01/27/19 07:57 Glucose 124 mg/dL (75-100) H 01/27/19 07:57 5.9 % (4-6) 01/24/19 15:59 Calcium 7.7 mg/dL (8.4-10.2) L 01/27/19 07:57 Phosphorus 2.80 mg/dL (2.5-4.5) D 01/28/19 06:44 Magnesium 2.20 mg/dL (1.7-2.3) 01/27/19 07:57 0.50 mg/dL (0.1-1.2) 01/25/19 02:10 AST 51 units/L (5-40) H 01/25/19 02:10 ALT 46 units/L (7-56) 01/25/19 02:10 116 units/L (35-129) 01/25/19 02:10 35.0 umol/L (25-60) 01/25/19 00:12 < 0.010 ng/mL (0.00-0.029) 01/26/19 13:49 NT-Pro-B Natriuret Pep 14.69 pg/mL (0-450) 01/24/19 12:43 6.4 g/dL (6.3-8.2) 01/25/19 02:10 3.2 g/dL (3.9-5) L 01/25/19 02:10 1.0 % 01/25/19 02:10 Amylase 84 units/L (27-131) 01/25/19 00:12 82 units/L (13-60) H 01/24/19 12:43 Straw (Yellow) 01/24/19 15:30 Clear (Clear) 01/24/19 15:30 6.0 (5.0-7.0) 01/24/19 15:30 Ur Specific [place] 1.014 (1.003-1.030) 01/24/19 15:30 30 mg/dl mg/dL (Negative) 01/24/19 15:30 Neg mg/dL (Negative) 01/24/19 15:30 Neg mg/dL (Negative) 01/24/19 15:30 Sm (Negative) 01/24/19 15:30 Neg (Negative) 01/24/19 15:30 Neg (Negative) 01/24/19 15:30 < 2.0 mg/dL (<2.0) 01/24/19 15:30 Ur Leukocyte Esterase Neg (Negative) 01/24/19 15:30 0.0 /HPF (0.0-6.0) 01/24/19 15:30 4.0 /HPF (0.0-6.0) 01/24/19 15:30 U Epithel Cells (Auto) < 1.0 /HPF (0-13.0) 01/24/19 15:30 1+ /HPF (Negative) 01/24/19 15:30 Hyaline Casts 2 /LPF 01/24/19 15:30 Few /HPF 01/24/19 15:30 Salicylates < 0.3 mg/dL (2.8-20.0) L 01/24/19 12:43 Presumptive negative 01/24/19 15:30 Presumptive negative 01/24/19 15:30 Acetaminophen < 5.0 ug/mL (10.0-30.0) L 01/24/19 12:43 Ur Barbiturates Screen Presumptive negative 01/24/19 15:30 Ur Phencyclidine Scrn Presumptive negative 01/24/19 15:30 Ur Amphetamines Screen Presumptive negative 01/24/19 15:30 U Benzodiazepines Scrn Presumptive negative 01/24/19 15:30 Presumptive negative 01/24/19 15:30 U Marijuana (THC) Screen Presumptive negative 01/24/19 15:30 Disclamer 01/24/19 15:30 Plasma/Serum Alcohol 0.32 % (0-0.07) H 01/24/19 12:43 Hepatitis A IgM Ab Non-reactive (NonReactive) 01/25/19 07:29 Hep Bs Antigen Non-reactive (Negative) 01/25/19 07:29 Hep B Core IgM Ab Non-reactive (NonReactive) 01/25/19 07:29 Non-reactive (NonReactive) 01/25/19 07:29 Active Medications - Current Medications Current Medications: Generic Name Dose Route Start Last Admin Trade Name Freq PRN Reason Stop Dose Admin Acetaminophen 650 mg 01/24/19 15:51 Tylenol PO Q4H PRN Pain MILD(1-3)/Fever >100.5/ROLDAN Chlordiazepoxide HCl 50 mg 01/25/19 00:00 Librium PO Q1H PRN CIWA-Ar 8-15 Chlordiazepoxide HCl 100 mg 01/25/19 00:00 Librium PO Q1H PRN CIWA-Ar 16-25 Enoxaparin Sodium 40 mg 01/25/19 10:00 01/27/19 09:10 Lovenox SUB-Q 40 mg QDAY ADRIANA Administration Fluoxetine HCl 20 mg 01/27/19 10:00 01/27/19 10:03 Prozac PO 20 mg QDAY ADRIANA Administration Hydralazine HCl 10 mg 01/26/19 09:37 01/26/19 10:41 Apresoline IV 10 mg Q4HR PRN Administration BP >160/100 Hydromorphone HCl 0.25 mg 01/24/19 15:51 01/25/19 21:45 Dilaudid IV 0.25 mg Q3H PRN Administration Pain, Moderate (4-6) Potassium Chloride 40 meq/ 520 mls @ 125 mls/hr 01/28/19 08:00 Sodium Chloride IV 01/28/19 12:10 DIRECT ADRIANA Lorazepam 2 mg 01/25/19 00:00 01/26/19 19:25 Ativan IV 2 mg Q1H PRN Administration CIWA-Ar 8-15 Lorazepam 4 mg 01/25/19 00:00 Ativan IV Q1H PRN CIWA-Ar 16-25 Ondansetron HCl 4 mg 01/26/19 09:38 Zofran IV Q4H PRN Nausea And Vomiting Oxycodone/Acetaminophen 1 tab 01/24/19 15:51 01/26/19 10:41 Percocet 5/325 PO 1 tab Q6H PRN Administration Pain, Moderate (4-6) Pantoprazole Sodium 40 mg 01/25/19 12:00 01/27/19 09:11 Protonix PO 40 mg QDAY ADRIANA Administration Potassium Chloride 40 meq 01/28/19 10:00 K-Dur PO QDAY ADRIANA Promethazine HCl 25 mg 01/26/19 09:38 Phenergan [place] Q6H PRN Nausea And Vomiting Sodium Chloride 10 ml 01/24/19 16:00 01/27/19 21:36 Sodium Chloride Flush Syringe 10 Ml IV 10 ml BID ADRIANA Administration Sodium Chloride 10 ml 01/24/19 15:51 01/26/19 19:26 Sodium Chloride Flush Syringe 10 Ml IV 10 ml PRN PRN Administration LINE FLUSH Trazodone HCl 50 mg 01/26/19 18:05 01/27/19 21:36 Desyrel PO 50 mg QHS PRN Administration Sleep
--- NOTE | 2019-01-28 09:19 | Gastroenterology Consultation ---
History of Present Illness - Reason for Consult Consult date: 01/28/19 abdominal pain Requesting physician: DIANA SANDERS - History of Present Illness Pt is a 48 yo male who presented with suicidal ideations and also complaints of chest/abdominal pain. Pt with + serum alcohol level on admission and reports being intoxicated at the time of admission. He currently denies abdominal pain and does not provide much details on previous gi symptoms. He denies abd pain, n/v, change in bowel habits. Liver enzymes elevated in mixed pattern on elevation but have since normalized; ct of abd without acute findings. Past History Past Medical History: No medical history Past Surgical History: No surgical history Social history: lives with family ( from ), alcohol abuse Medications and Allergies Allergies Allergy/AdvReac Type Severity Reaction Status Date / Time No Known Allergies Allergy Unverified 01/24/19 12:09 Active Meds: Active Medications Acetaminophen (Tylenol) 650 mg PO Q4H PRN PRN Reason: Pain MILD(1-3)/Fever >100.5/ROLDAN Chlordiazepoxide HCl (Librium) 50 mg PO Q1H PRN PRN Reason: CIWA-Ar 8-15 Chlordiazepoxide HCl (Librium) 100 mg PO Q1H PRN PRN Reason: CIWA-Ar 16-25 Enoxaparin Sodium (Lovenox) 40 mg SUB-Q QDAY [facility] Last Admin: 01/27/19 09:10 Dose: 40 mg Documented by: Fluoxetine HCl (Prozac) 20 mg PO QDAY [facility] Last Admin: 01/27/19 10:03 Dose: 20 mg Documented by: Hydralazine HCl (Apresoline) 10 mg IV Q4HR PRN PRN Reason: BP >160/100 Last Admin: 01/26/19 10:41 Dose: 10 mg Documented by: Hydromorphone HCl (Dilaudid) 0.25 mg IV Q3H PRN PRN Reason: Pain, Moderate (4-6) Last Admin: 01/25/19 21:45 Dose: 0.25 mg Documented by: Potassium Chloride 40 meq/ (Sodium Chloride) 520 mls @ 125 mls/hr IV ONCE ONE Stop: 01/28/19 13:39 Lorazepam (Ativan) 2 mg IV Q1H PRN PRN Reason: CIWA-Ar 8-15 Last Admin: 01/26/19 19:25 Dose: 2 mg Documented by: Lorazepam (Ativan) 4 mg IV Q1H PRN PRN Reason: CIWA-Ar 16- Ondansetron HCl (Zofran) 4 mg IV Q4H PRN PRN Reason: Nausea And Vomiting Oxycodone/Acetaminophen (Percocet 5/325) 1 tab PO Q6H PRN PRN Reason: Pain, Moderate (4-6) Last Admin: 01/26/19 10:41 Dose: 1 tab Documented by: Pantoprazole Sodium (Protonix) 40 mg PO QDAY [facility] Last Admin: 01/27/19 09:11 Dose: 40 mg Documented by: Potassium Chloride (K-Dur) 40 meq PO QDAY [facility] Promethazine HCl (Phenergan) 25 mg [place] Q6H PRN PRN Reason: Nausea And Vomiting Sodium Chloride (Sodium Chloride Flush Syringe 10 Ml) 10 ml IV BID ADRIANA Last Admin: 01/27/19 21:36 Dose: 10 ml Documented by: Sodium Chloride (Sodium Chloride Flush Syringe 10 Ml) 10 ml IV PRN PRN PRN Reason: LINE FLUSH Last Admin: 01/26/19 19:26 Dose: 10 ml Documented by: Trazodone HCl (Desyrel) 50 mg PO QHS PRN PRN Reason: Sleep Last Admin: 01/27/19 21:36 Dose: 50 mg Documented by: Reviewed/updated patient's home and current medications Review of Systems - Review of Systems All systems: negative (per HPI) Exam - Constitutional Vital Signs: Temp Pulse Resp BP Pulse Ox 98.2 F 76 20 136/91 95 01/28/19 07:00 01/28/19 07:00 01/28/19 07:00 01/28/19 07:00 01/28/19 07:00 General appearance: no acute distress - EENT Eyes: PERRL, EOM intact - Neck Neck: supple, normal ROM - Respiratory Respiratory effort: normal Respiratory: bilateral: CTA - Cardiovascular Rhythm: regular Heart Sounds: Present: S1 & S2 Extremities: No edema - Gastrointestinal General gastrointestinal: Present: soft, non-tender, non-distended - Integumentary Integumentary: Present: clear, warm - Neurologic Neurological: alert and oriented x3 - Psychiatric Psychiatric: appropriate mood/affect - Labs CBC & Chem 7: 01/25/19 02:10 01/28/19 06:44 Lab Results: Laboratory Results - last 24 hr 01/27/19 01/28/19 07:57 06:44 Sodium 140 Potassium 3.2 L 3.1 L Chloride 101.5 Carbon Dioxide 28 Anion Gap 14 BUN 7 L Creatinine 0.9 Estimated GFR > 60 BUN/Creatinine Ratio 8 Glucose 124 H Calcium 7.7 L Phosphorus 2.20 L 2.80 D Magnesium 2.20 - Imaging CT Scan: report reviewed Assessment and Plan 1. Abdominal pain - resolved; elevated liver enzymes on admission (likely from alcohol, h/o ccy) which has since resolved; ct without acute findings. 2. Abnormal liver enzymes - improved 3. Alcohol abuse Will sign off, please call as needed or with questions
--- NOTE | 2019-01-28 09:43 | Progress Note ---
Subjective - Reason for Consult Consult date: 01/28/19 Reason for consult: Psychiatry Follow-up - Chief Complaint Chief complaint: "I feel much better" 48 year old male seen for psychiatric evaluation on the medical floor. His chief complaint was chest pain, abdominal pain and suicidal ideation. Today the patient was calm and cooperative during the assessment. He is adamant that he will not drink alcohol (etoh) as he did prior to his arrival to the hospital. He stated that he look forward to being discharge so he can find a job. He stated, "I do not want to kill myself." He denies SI/HI's and AVH's. He denies any side effects of his medication. Mental Status Exam - Vital signs Last Vital Signs Temp 98.2 F 01/28/19 07:00 Pulse 76 01/28/19 07:00 Resp 20 01/28/19 07:00 BP 136/91 01/28/19 07:00 Pulse Ox 95 01/28/19 07:00 - Exam Narrative exam: MSE: Appearance: calm, cooperative Behavior: regular eye contact Speech: regular rate and tone Mood: "better" Affect: congruent to mood Thought Process: logical Thought Content: denies SI/HI's and AVH's Motor Activity: sitting up in bed Cognition: A/O x 3 Insight: appropriate Judgment: appropriate Assessment and Plan Impression: MDD. Alcohol use DO. Today the patient was calm and cooperative during the assessment. The patient is no threat to self. DDx: R/O Bipolar DO, Alcohol Induced Mood DO Recommendation/Plan: Rescind 1013 and continue Prozac 20 mg PO daily for depression. Discussed possible suicidality/medication induced epifanio reference antidepressants. Discussed possible priapism with the patient reference Trazodone. The patient verbalized understanding reference his medications. Dispo: The patient can follow up with the [facility] for outpatient psy services. Will staff with Dr Adele Victoria,
[2019-01-28] MEDS: KCL 40 MEQ in NACL 0.45% 500 ML IV ONE ×2 (09:56→10:14)
[2019-01-28] MEDS: LOVENOX SUB-Q SCH (09:57)
[2019-01-28] MEDS: PROzac PO SCH (09:57)
[2019-01-28] MEDS: PROTONIX PO SCH (09:58)
[2019-01-28] MEDS: SODIUM CHLORIDE FLUSH SYRINGE 10 ML IV SCH (09:58)
[2019-01-28] MEDS ORDERED: K-DUR PO SCH (10:00)
--- NOTE | 2019-01-28 10:45 | Progress Note ---
Assessment and Plan chest pain atypical proable gi etoh abuse sucidal ideation hypokalemia rec: tte reviewed with no significant abnormalities. chest pain is currently resolved. currently stable cardiac status. no plans for additional cardiac w/u at this time. pt may discharge home from cardiology standpoint. The patient has been seen in conjunction with Dr. Rosenbaum who agrees with the assessment and plan of care. Subjective Date of service: 01/28/19 Principal diagnosis: cp Interval history: pt resting comfortably in bed, no current complaints. states he is feeling well and wants to go home. Objective Last Vital Signs Temp 98.2 F 01/28/19 07:00 Pulse 76 01/28/19 07:00 Resp 20 01/28/19 07:00 BP 136/91 01/28/19 07:00 Pulse Ox 95 01/28/19 07:00 - Physical Examination General: No Apparent Distress HEENT: Positive: PERRL, Mucus Membranes Moist Neck: Positive: neck supple, trachea midline Cardiac: Positive: Reg Rate and Rhythm, S1/S2 Lungs: Positive: Decreased Breath Sounds Neuro: Positive: Grossly Intact Abdomen: Positive: Soft, Active Bowel Sounds. Negative: Tender, Distended Skin: Positive: Clear Incision: Cardiac Cath Site Musculoskeletal: No Pain, Normal Range of Motion Extremities: Present: normal. Absent: edema - Labs and Meds Comprehensive Metabolic Panel 01/28/19 Range/Units 06:44 Potassium 3.1 L (3.6-5.0) mmol/L
--- NOTE | 2019-01-28 14:13 | Discharge Summary ---
Providers - Providers Date of Admission: 01/24/19 15:51 Attending physician: DIANA SANDERS MD 01/25/19 08:06 Consult to Mental Health [CONS] Routine Reason For Exam: suicidal ideation Place consult to:: mental health Notified:: Phone number called:: [phone] Was contact made?: No Time called:: 08:40 01/26/19 12:31 Consult to Physician [CONS] Routine Comment: Consulting Provider: JOSELIN ANDREWS Physician Instructions: Reason For Exam: chest pain, tachycardia 01/27/19 13:57 Consult to Physician [CONS] Routine Comment: Consulting Provider: DOMINIQUE PEARCE Physician Instructions: Reason For Exam: abdominal pain [facility] Hospital course: 48-year-old male was presented to the ED for the complaints of suicidal ideation. Patient is complaining chest pain and admitted to the floor for the management of chest pain. Patient drinks 12-20 beers a day. Suicidal ideation - He was managed by psychiatry team. His meds were optimized. He was initially on 1013, he improved and was taken off 1013 when he was deemed safe Alcohol intoxication and withdrawal Patient was treated with IV fluids and CIWA protocol Chest pain likely due to GERD Patient was treated with PPI. Echo was normal. He was seen by cardiology who recommended no further workup Hyponatremia - Resolved with IV fluid N/V- abdominal pain zofran prn, , ct/ap shows fatty liver, RUQ sono neg, GI consult appreciated, no further workup indicated N/v resolving, now tolerating PO, patient improved with PPI Hypokalemia, hypophosphatemia replaced DVT prophylaxis; lovenox Disposition: - TO HOME OR SELFCARE Time spent for discharge: 33 mins Core Measure Documentation - Palliative Care Palliative Care/ Comfort Measures: Not Applicable - Core Measures Any of the following diagnoses?: none Exam - Constitutional Vitals: Temp Pulse Resp BP Pulse Ox 98.2 F 76 20 136/91 95 01/28/19 07:00 01/28/19 07:00 01/28/19 07:00 01/28/19 07:00 01/28/19 07:00 General appearance: Present: no acute distress, well-nourished - EENT Eyes: Present: PERRL ENT: hearing intact, clear oral mucosa - Neck Neck: Present: supple, normal ROM - Respiratory Respiratory effort: normal Respiratory: bilateral: CTA - Cardiovascular Heart Sounds: Present: S1 & S2. Absent: rub, click - Extremities Extremities: pulses symmetrical, No edema Peripheral Pulses: within normal limits - Abdominal General gastrointestinal: Present: soft, non-tender, non-distended, normal bowel sounds Male genitourinary: Present: normal - Integumentary Integumentary: Present: clear, warm, dry - Musculoskeletal Musculoskeletal: gait normal, strength equal bilaterally - Psychiatric Psychiatric: appropriate mood/affect, intact judgment & insight - Neurologic Neurologic: CNII-XII intact, moves all extremities Plan [facility] [Primary Care Provider] - 3-5 Days Prescriptions: traZODone [Desyrel] 50 mg PO QHS PRN #30 tablet PRN Reason: Sleep Potassium Chloride [K-Dur] 40 meq PO QDAY 10 Days tablet Pantoprazole [Protonix TAB] 40 mg PO QDAY #30 tablet FLUoxetine [PROzac] 20 mg PO QDAY #30 capsule
== END 2019-01-28 20:00 | disposition home or self-care (01) | DRG 309 ==
LOC: EEVIPCON 12:08 → ED 12:08 → 3A 15:51
PROVIDERS: ADMIT Internal Medicine; ATTEND Internal Medicine
DX: R00.0 Tachycardia, unspecified (principal); E87.1 Hypo-osmolality and hyponatremia; F33.9 Major depressive disorder, recurrent, unspecified; F10.24 Alcohol dependence with alcohol-induced mood disorder; K21.9 Gastro-esophageal reflux disease without esophagitis; E83.39 Other disorders of phosphorus metabolism; E87.6 Hypokalemia; I10 Essential (primary) hypertension; F10.229 Alcohol dependence with intoxication, unspecified; Y90.9 Presence of alcohol in blood, level not specified; Z90.49 Acquired absence of other specified parts of digestive tract; Z82.49 Family history of ischemic heart disease and other diseases of the circulatory system
CPT/HCPCS: 36415; 70450; 71046; 71275; 74177; 76705; 80048; 80053; 80074; 80307; 80320; 81001; 82140; 82150; 83036; 83690; 83735; 83880; 84100; 84132; 84484; 85025; 85610; 85730; 93005; 93010; 93306; 96365; G0378; C9113; G0480; J0360; J1170; J1650; J2060; J2405; J3411; J3475; J3480; J7030; J7040; J7042; Q9967